=== PATIENT | female | born 1985 | race African-American/Black ===

== ENCOUNTER 2018-04-26 02:11 | Emergency (ER) | payer OTHER ==
[~2018-04-26] VITALS: Ht 167.6 cm; Wt 127.0 kg
[2018-04-26 02:51] LABS: URINE BILIRUBIN NEGATIVE (Negative); URINE BLOOD TRACE (Negative); URINE CLARITY CLEAR; URINE COLOR YELLOW; URINE GLUCOSE-RANDOM* NEGATIVE (Negative); URINE KETONES NEGATIVE (Negative); URINE LEUKOCYTES-REFLEX 3+ (Negative); URINE NITRITE-REFLEX NEGATIVE (Negative); URINE PROTEIN (DIPSTICK) NEGATIVE (Negative); URINE SPECIFIC GRAVITY 1.015 (1.005-1.035); URINE UROBILINOGEN 0.2 E.U./dl (0.2-1.0)
[2018-04-26 03:05] LABS: MUCUS 4-6 Moderate strn/LPF (None Seen); SQUAMOUS >10 Many /LPF (0-3)
[2018-04-26 03:06] LABS: BACTERIA-REFLEX >30 Many /HPF (None Seen); CASTS None Seen /LPF (None Seen); CRYSTALS None Seen /LPF (None Seen); URINE RBC 0-2 Rare /HPF (0-2)
[2018-04-26 03:14] VITALS: BP 163/102
[2018-04-26] MEDS ORDERED: SKELAXIN 800 M800 M1 PO (03:19)
[2018-04-26] MEDS ORDERED: VALTREX1000 MG PO (04:23)
[2018-04-26] MEDS ORDERED: BACTRIM DS TAB1 EACH PO (04:23)
[2018-04-26] MEDS ORDERED: SENNA-DOCUSATE1 EACH PO (04:23)
[2018-04-26] MEDS ORDERED: NORCO 7.5-3251 EACH PO (04:23)
[2018-04-26] MEDS ORDERED: LIDOCAINE 2%2 %/5 GM VAG (04:23)
[2018-04-26 09:06] LABS: HSV PCR SOURCE LABIA
[2018-05-01 18:11] LABS: HSV 1 DNA Negative (Negative); HSV 2 DNA Positive (Negative); NEISSERIA GONORRHEA-PCR Negative (Negative)
== END 2018-04-26 04:43 | disposition home or self-care (01) ==
LOC: ER 02:11
PROVIDERS: Emergency Medicine
DX: A60.00 Herpesviral infection of urogenital system, unspecified (principal); N39.0 Urinary tract infection, site not specified; R11.0 Nausea

== ENCOUNTER 2019-04-23 16:00 | Emergency (ER) | payer OTHER ==
[~2019-04-23] VITALS: Ht 167.6 cm; Wt 127.9 kg
[~2019-04-23 16:00] MED LIST: BACTRIM DS TAB1 EACH PO; LIDOCAINE 2%2 %/5 GM VAG; NORCO 7.5-3251 EACH PO; SENNA-DOCUSATE1 EACH PO; SKELAXIN 800 M800 M1 PO; VALTREX1000 MG PO
[2019-04-23 16:22] LABS: URINE BLOOD 1+ (Negative); URINE CLARITY SL CLOUDY; URINE COLOR YELLOW; URINE GLUCOSE-RANDOM* NEGATIVE (Negative); URINE KETONES NEGATIVE (Negative); URINE NITRITE-REFLEX NEGATIVE (Negative); URINE PROTEIN (DIPSTICK) TRACE (Negative); URINE UROBILINOGEN 0.2 E.U./dl (0.2-1.0)
[2019-04-23 16:23] LABS: ICTOTEST (BILI CONFIRMATORY) Negative (Negative); URINE BILIRUBIN NEGATIVE (Negative); URINE LEUKOCYTES-REFLEX 1+ (Negative)
[2019-04-23 16:46] LABS: CASTS None Seen /LPF (None Seen); CRYSTALS None Seen /LPF (None Seen); SQUAMOUS 4-10 Moderate /LPF (0-3); URINE RBC 3-10 Few /HPF (0-2)
[2019-04-23 16:47] LABS: URINE WBC-REFLEX 6-15 Few /HPF (0-5)
[2019-04-23 18:46] LABS: ABSOLUTE NEUTROPHILS 5.7 thou/uL (1.4-8.2); BASOPHILS 1.1 % (0.0-2.0); EOSINOPHILS 2.1 % (0.0-3.0); HEMATOCRIT 33.8 % (37.0-47.0); HEMOGLOBIN 11.4 gm/dL (12.0-15.0); LYMPHOCYTES 28.5 % (24.0-44.0); MCH 30.6 pg (26.0-34.0); MCHC 33.9 g/dL (28.0-37.0); MCV 90.4 fL (80.0-100.0); MONOCYTES 4.4 % (1.0-8.0); PLATELET COUNT 371 thou/uL (150-400); POLYS 63.9 % (36.0-66.0); RBC 3.74 mil/uL (4.20-5.00); RDW 16.1 % (10.5-14.5)
[2019-04-23 18:54] LABS: CALCIUM 9.4 mg/dL (8.5-10.1); CREATININE 0.8 mg/dL (0.6-1.0); POTASSIUM 3.3 mmol/L (3.5-5.1)
[2019-04-23 19:01] LABS: ALBUMIN 3.4 g/dL (3.4-5.0); TOTAL BILIRUBIN 0.3 mg/dL (<0.1-1.0); TOTAL PROTEIN 7.6 g/dL (6.4-8.2)
[2019-04-23] MEDS ORDERED: FLAGYL500 M1 PO (19:12)
[2019-04-23] MEDS ORDERED: MOBIC7.5 MG PO (19:12)
[2019-04-23] MEDS ORDERED: BACTRIM DS TAB1 EACH PO (19:12)
[2019-04-23 19:30] VITALS: BP 147/87
== END 2019-04-23 19:30 ==
LOC: ER 16:00
PROVIDERS: Physician Assistant
DX: N76.0 Acute vaginitis (principal); B96.89 Other specified bacterial agents as the cause of diseases classified elsewhere; A59.9 Trichomoniasis, unspecified; N39.0 Urinary tract infection, site not specified; F17.210 Nicotine dependence, cigarettes, uncomplicated